=== PATIENT | female | born 1990 | race Caucasian/White ===

== ENCOUNTER 2022-01-09 20:41 | Observation (INO) ==
[2022-01-09 22:03] LABS: Basophils # (auto) 0.01 K/uL (0-0.2); Basophils % (auto) 0.2 %; Eosinophils # (auto) 0.15 K/uL (0-0.5); Eosinophils % (auto) 2.3 %; Hematocrit (blood only) 45.3 % (37-47); Hemoglobin 15.2 g/dL (12.0-16.0); Immature Granulocytes # (auto) 0.01 K/uL (0.00-0.02); Immature Granulocytes % (auto) 0.2 %; Lymphocytes # (auto) 1.24 K/uL (1.2-3.4); Lymphocytes % (auto) 18.7 %; Mean Corpuscular Hemoglobin 29.7 pg (25-34); Mean Corpuscular Hgb Conc 33.6 g/dL (32-36); Mean Corpuscular Volume 88.5 fL (80-100); Mean Platelet Volume 10.2 fL (7.4-10.4); Monocytes # (auto) 0.48 K/uL (0.11-0.59); Monocytes % (auto) 7.3 %; Neutrophils # (auto) 4.73 K/uL (1.4-6.5); Neutrophils % (auto) 71.3 %; Platelet Count 345 K/uL (130-400); RDW Coefficient of Variation 14.2 % (11.5-14.5); RDW Standard Deviation 46.9 fL (36.4-46.3); Red Blood Count 5.12 M/uL (4.2-5.4); White Blood Count 6.62 K/uL (4.8-10.8)
[2022-01-09 22:27] LABS: BUN Creatinine Ratio 12.8 (10-20); Calcium 9.4 mg/dl (8.5-10.1); Creatinine Clr Calc Pharmacy 117.5 ml/min; Est GFR (African American) 118.2 ml/min; Potassium 3.4 mmol/L (3.5-5.1)
[2022-01-09 22:38] LABS: Albumin Globulin Ratio 1.4 (0.9-2); Albumin Level 4.4 gm/dl (3.4-5.0); Bilirubin,Total 6.2 mg/dl (0.2-1.0); Globulin 3.1 gm/dl (2.5-4.0); Total Protein 7.5 gm/dl (6.0-8.3)
[2022-01-09 22:59] LABS: Appearance Urine Clear (Clear); Bacteria Urine Automated Negative (Negative); Bilirubin Urine 3+ (Negative); Blood Urine Trace (Negative); Color Urine Dark Yellow; Glucose Urine UA Negative (Negative); Ketones Urine Trace (Negative); Leukocyte Esterase Urine 1+ (Negative); Nitrite Urine Positive (Negative); Protein Urine Negative (Negative); Specific Gravity Urine 1.016 (1.000-1.030); Urobilinogen Urine Negative (Negative)
--- NOTE | 2022-01-09 23:24 | History & Physical Report ---
Date of Service January 09, 2022 Assessment & Plan (1) Elevated LFTs: Plan: Due to the patient's clinical presentation and laboratory findings she will be admitted to the hospital. We will proceed as follows: I am concerned that the patient may either have choledocholithiasis -Due to the CT scan findings we will order an MRCP. We will follow serial labs We will implement n.p.o. status We will commence antibiotics in the form of Zosyn Analgesics will be provided Antiemetics will be provided We will hydrate with IV fluids supplementing her potassium I suspect the patient may require GI evaluation and potential ERCP. We will consult gastroenterology for further recommendations We will use SCDs for DVT prevention, no chemical means the patient may potentially require procedural intervention Should be a level 1 full code History of Present Illness Chief Complaint: Abdominal pain Primary Care Provider: Karla Cerna PA-C This is a 31-year-old female who underwent a laparoscopic cholecystectomy on 12/29/[address] Sahu. The operative note was reviewed and it was noted the patient had a significant amount of sludge in her gallbladder. Patient says she was discharged home the day of her surgery and was initially doing well without any specific complaints other than some minor surgical pain. Patient notes that about 2 days ago she developed abdominal pain in her upper abdomen that she described as a "gallbladder attack". She had some associated nausea and vomiting but did not have any fevers, shakes, or chills. Since this episode the patient also noted that her eyes have become yellow. In the ED today the patient underwent labs and diagnostic testing which independent reviewed. An EKG showed normal sinus rhythm without any changes indicative of ischemia.CBC revealed white blood cell count, hemoglobin, hematocrit, and platelet count were all normal. Chemistry profile showed sodium was 141. Her potassium was 3.4. Her BUN and creatinine were both noted to be normal. Patient's total bilirubin was elevated at 6.2. Her AST and ALT were both elevated at 494 and 997 respectively. Alkaline phosphatase was elevated at 448. The patient did undergo a CT scan of the abdomen and pelvis that showed the no fluid collection was noted in the gallbladder fossa. There is some mild intrahepatic biliary ductal dilatation noted. At the time of my interview the patient was resting comfortably in bed and she was in no distress. Allergies Allergy/AdvReac Type Severity Reaction Status Date / Time No Known Allergies Allergy Verified 04/29/22 22:53 Home Medications Medication Instructions Recorded Confirmed Type famotidine 20 mg tablet (Pepcid) 20 mg PO DAILY PRN 12/11/21 01/09/22 History cholecalciferol (vitamin D3) 50 50 mcg PO QPM 12/24/21 01/09/22 History mcg (2,000 unit) tablet (Vitamin D3) sertraline 25 mg tablet (Zoloft) 25 mg PO HS 12/24/21 01/09/22 History zinc 50 mg tablet 50 mg PO QPM 12/24/21 01/09/22 History ibuprofen 200 mg tablet 400 - 600 mg PO TID PRN 01/09/22 01/09/22 History ondansetron HCl 4 mg tablet 4 mg PO Q6 PRN 01/09/22 01/09/22 History Past Med/Surg History Medical History Anxiety GERD (gastroesophageal reflux disease) Nausea and vomiting after administration of anesthetic agent Temporomandibular joint disorder Clicking, recommended to use bite block--pt states she does not use Surgical History H/O LEEP History of dilatation and curettage (~2019) Hx laparoscopic cholecystectomy (12/29/21) Laparoscopic cholecystectomy. Dr. Sahu 12/29/2021 [place] teeth extracted Family History Other No family history of adverse response to anesthesia Social History Smoking Status: Never smoker Second Hand Exposure: No; Hx Alcohol Use: Yes Alcohol type: wine Hx Substance Use: No Preferred Language: Spanish Communication Ability: Effective Tobacco Roller Required: No Beliefs That Will Affect Care: None marital status: Current Living Situation: Family Current Living Situation Comment: Lives with and kids current occupational status: employed current occupation: [employer] How many Children do You have: 2 Feels Safe at Home: Yes Safety Concerns: Feels Safe At This Time during the past year weight has: decreased > 10 lbs Assistive Devices: None Review of Systems Constitutional: no fever and no chills Eyes: as per Subjective / HPI Ear, Nose, Mouth, Throat: no ear pain Respiratory: no cough and no dyspnea Cardiovascular: no chest pain Gastrointestinal: + abdominal pain, + nausea and + vomiting Genitourinary: no dysuria Musculoskeletal: no back pain Integumentary: no rash Neurologic: no localized weakness Physical Exam Constitutional: WD/WN, vitals as above Eyes: Scleral jaundice noted ENMT: Ears: no hearing impairment Sublingual jaundice noted Neck: trachea midline Respiratory: normal respiratory effort, lungs clear to auscultation Cardiovascular: Rate/Rhythm: regular rate and regular rhythm Gastrointestinal (Abdomen): Patient has 4 laparoscopic incisions from her previous cholecystectomy that are healing well. There is no evidence of hernia. Patient's abdomen is soft without distention. Patient did have some minor pain with palpation in the right upper quadrant. No rebound tenderness or guarding was noted Musculoskeletal: No calf tenderness Skin: no rashes Neurologic: moves all extremities Psychiatric: A+Ox3, euthymic affect Results & Data Results & Data ([facility]) Vital Signs (Past 12 Hours) Vital Signs Temp Pulse Resp BP Pulse Ox 01/09/22 22:08 18 99 01/09/22 20:50 36.7 C 74 16 130/87 96 Supervising Physician Co-Signing Physician Notes I personally saw and evaluated the patient with Jean North PA-C and agree with the assessment and plan. 31-year-old female status post laparoscopic cholecystectomy 11 days ago now with elevated LFTs and abdominal pain Will admit the patient, keep her n.p.o. and obtain CT abdomen pelvis to look for biloma Start antibiotics Were unable to get a HIDA scan over the weekend We will consult GI for consideration of possible ERCP PG Care Time/CCT Total # of Minutes Spent Total Time Spent with Patient: Total time spent is greater than 50% in coordination of care (as documented) at patient's floor/unit and/or counseling patient: Coding Level of Care Code 60174 Initial Inpt Care Lvl 3 Diagnoses Elevated LFTs R79.89
[2022-01-09] MEDS ORDERED: ONDANSETRON INJ 2 MG/ML 2 ML VIAL IV STA (23:25)
[2022-01-09] MEDS ORDERED: OPTIRAY 320 100ml IV ONE (23:35)
[2022-01-09] MEDS: fentaNYL citrate 100 MCG/2 ML VIAL IV PRN (23:47)
[2022-01-10] MEDS ORDERED: PIPERACILL/TAZOBAC CONSULT ACTIVE PRN (00:25)
[2022-01-10] MEDS ORDERED: POTASSIUM CHLORIDE 10 MEQ in LACTATED RINGER'S 1,000 ML IV SCH (00:30)
--- NOTE | 2022-01-10 00:32 | CT Scan Report ---
CT SCAN OF THE ABDOMEN AND PELVIS WITH IV CONTRAST CLINICAL HISTORY: Hyperbilirubinemia status post cholecystectomy. Generalized abdominal pain. COMPARISON STUDY: No priors. TECHNIQUE: Following the IV administration of 95 cc of Optiray 320, CT scan of the abdomen and pelvi s is performed from the lung bases to the proximal femora. Images are reviewed in the axial, sagittal , and coronal planes. IV contrast was administered without complication. A dose lowering technique wa s utilized adhering to the principles of ALARA. CT DOSE: 535.53 mGy.cm FINDINGS: Lung bases: The heart is normal in size and without pericardial effusion. The lung bases are clear. Liver: The contrast-enhanced liver is normal in size, contour, and attenuation. There is mild intrahe patic biliary ductal dilatation. The hepatic veins and portal veins are patent. Gallbladder: Surgically absent noting clips in the gallbladder fossa. There is minimal stranding in t he gallbladder fossa. No fluid collection is identified. Spleen: Normal in size and attenuation. Pancreas: Unremarkable. Adrenal glands: Unremarkable. Kidneys: The contrast enhanced kidneys are normal in size and without hydronephrosis. The kidneys enh ance symmetrically. A circumaortic left renal vein is incidentally noted. Abdominal vasculature: The abdominal aorta is normal in course and caliber. Bowel: The small bowel and colon are normal in course and caliber. The appendix is well-visualized a nd normal. Peritoneum: There is no intraperitoneal free air or abdominal ascites. There is a fat-containing umbi lical hernia. Lymphadenopathy: None. Pelvic viscera: The bladder, uterus, and adnexa are normal as visualized. Bilateral ovarian follicles are incidentally noted. Skeletal structures: No lytic or blastic lesions are seen. IMPRESSION: 1. The gallbladder is surgically absent. 2. There is minimal stranding in the gallbladder fossa. No fluid collection is seen. 3. There is mild nonspecific intrahepatic biliary ductal dilatation. If there is clinical concern for a retained gallstone/choledocholithiasis an MRCP could be considered. 4. Additional findings as above. ACT 112: Negative or not required by law. Electronically signed by: Ramses Narayan M.D. 01/10/2022 12:30 AM
[2022-01-10] MEDS: fentaNYL citrate 100 MCG/2 ML VIAL IV PRN (01:17)
[2022-01-10] MEDS: PIPERACILLIN/TAZOBACTAM 3.375 GM in DEXTROSE 5% 100 ML IV SCH ×3 (02:08→16:25)
[2022-01-10] MEDS: ONDANSETRON INJ 2 MG/ML 2 ML VIAL IV PRN ×3 (04:21→22:36)
--- NOTE | 2022-01-10 05:21 | Surgery Progress Note ---
Date of Service January 10, 2022 Assessment & Plan (1) Elevated LFTs: Plan: Patient is status post laparoscopic cholecystectomy on 12/29/[address] Sahu. Patient was readmitted due to elevated LFTs/jaundice. We will continue to proceed as follows: As needed analgesics As needed antiemetics IV fluid for hydration Continue n.p.o. status for the present time Continue antibiotics in form of Zosyn Due to concern for potential choledocholithiasis, an MRCP was performed which did not show any evidence of choledocholithiasis. There is also no evidence of fluid collection or abscess in the gallbladder fossa We will plan on repeating labs this morning trending her LFTs GI has been consulted and we will await recommendations SCDs only for DVT prevention for the present time until we are certain if patient will require any procedural intervention Admission and Anticipated Discharge Date Admission Date: January 10, 2022 Supervising Physician Co-Signing Physician Notes I personally saw and evaluated the patient with Jean North PA-C and agree with the assessment and plan. 31-year-old female status post laparoscopic cholecystectomy 12 days ago now with elevated LFTs and abdominal pain CT images and MRCP images and results reviewed No evidence for biloma or retained stone She has no biliary dilation to suggest obstruction Will await GI input today, she may have an intrinsic liver issue causing her elevated LFTs Keep n.p.o. for now and continue IV antibiotics Subjective Patient is resting comfortably in bed. She notes she really has not had much in the way of worsening abdominal pain since admission. She denies any nausea or vomiting. She has not had a bowel movement since admission. Physical Exam Gastrointestinal (Abdomen): Abdomen is soft and nondistended. She has appropriate tenderness near surgical incisions. Results & Data ([facility]) Vital Signs (Past 12 Hours) Vital Signs Temp Pulse Pulse Resp BP BP Pulse Ox 01/10/22 03:50 36.9 C 61 18 140/84 98 01/09/22 22:08 18 99 01/09/22 20:50 36.7 C 74 16 130/87 96 PG Care Time/CCT Total # of Minutes Spent Total Time Spent with Patient: Total time spent is greater than 50% in coordination of care (as documented) at patient's floor/unit and/or counseling patient: Coding Level of Care Code None Diagnoses Elevated LFTs R79.89
[2022-01-10 07:14] LABS: Basophils # (auto) 0.01 K/uL (0-0.2); Basophils % (auto) 0.1 %; Eosinophils # (auto) 0.14 K/uL (0-0.5); Eosinophils % (auto) 1.9 %; Hematocrit (blood only) 40.6 % (37-47); Hemoglobin 13.5 g/dL (12.0-16.0); Immature Granulocytes # (auto) 0.02 K/uL (0.00-0.02); Immature Granulocytes % (auto) 0.3 %; Lymphocytes # (auto) 1.52 K/uL (1.2-3.4); Lymphocytes % (auto) 20.9 %; Mean Corpuscular Hemoglobin 28.9 pg (25-34); Mean Corpuscular Hgb Conc 33.3 g/dL (32-36); Mean Corpuscular Volume 86.9 fL (80-100); Mean Platelet Volume 9.9 fL (7.4-10.4); Monocytes % (auto) 9.6 %; Neutrophils % (auto) 67.2 %; Platelet Count 281 K/uL (130-400); RDW Coefficient of Variation 14.6 % (11.5-14.5); RDW Standard Deviation 46.2 fL (36.4-46.3); Red Blood Count 4.67 M/uL (4.2-5.4); White Blood Count 7.29 K/uL (4.8-10.8)
[2022-01-10 07:42] LABS: BUN Creatinine Ratio 13.2 (10-20); Calcium 8.9 mg/dl (8.5-10.1); Creatinine Clr Calc Pharmacy 133.2 ml/min; Est GFR (Non-African American) 117.4 ml/min
[2022-01-10 07:49] LABS: Albumin Globulin Ratio 1.6 (0.9-2); Albumin Level 3.9 gm/dl (3.4-5.0); Bilirubin,Total 5.5 mg/dl (0.2-1.0); Globulin 2.4 gm/dl (2.5-4.0); Total Protein 6.3 gm/dl (6.0-8.3)
--- NOTE | 2022-01-10 09:03 | Magnetic Resonance Report ---
MR MRCP HISTORY: 31 years-old Female ?choledocholithiasis elevated bilirubin status post cholecystectomy. COMPARISON: CT abdomen and pelvis 01/09/2022 TECHNIQUE: MRCP without the use of IV contrast was obtained utilizing institutional protocol FINDINGS: Motion degraded exam. The imaged lower chest appears unremarkable. Cholecystectomy. Trace fluid is no jesus within the olivia hepatis. No drainable fluid collection identified. No intrahepatic or extrahepat ic biliary ductal dilation. The common bile duct is normal in caliber measuring 3 mm transversely. No filling defects are identified to suggest choledocholithiasis. No biliary strictures. No pancreatic ductal dilation or pancreatic divisum identified. The solid abdominal organs are unremarkable. No bowel obstruction. Tiny hiatal hernia suspected. IMPRESSION: 1. Status post cholecystectomy with edema and likely expected postoperative trace fluid within the po rta hepatus. 2. No biliary ductal dilation or choledocholithiasis. ACT 112: Negative or not required by law. The above report was generated using voice recognition software. It may contain grammatical, syntax o r spelling errors. Electronically signed by: Jamari Shirley M.D. 01/10/2022 9:01 AM
[2022-01-10] MEDS: LACTATED RINGER'S 1,000 ML IV SCH ×3 (09:33→22:29)
[2022-01-10] MEDS: MoRPHine SULFATE 4 MG/ML 1 ML CARP\\VIAL IV PRN ×3 (11:17→22:34)
[2022-01-10] MEDS ORDERED: SUCCINYLCHOLINE CHLORIDE 20 MG/ML 10 ML VIAL IV ONE (14:12)
[2022-01-10] MEDS ORDERED: fentaNYL citrate 100 MCG/2 ML VIAL ONE (14:12)
[2022-01-10] MEDS ORDERED: MIDAZOLAM HCL 1 MG/ML 2ML VIAL ONE (14:12)
[2022-01-10] MEDS ORDERED: PROPOFOL IV EMULSION 10 MG/ML 20 ML VIAL IV ONE (14:12)
[2022-01-10] MEDS ORDERED: HYDROmorphone INJ 2 MG/ML SYR/VIAL IV PRN (14:43)
[2022-01-10] MEDS ORDERED: DROPERIDOL 5 MG/2 ML VIAL IV PRN (14:43)
[2022-01-10] MEDS ORDERED: ePHEDrine sulfate 50 MG/ML AMP IV PRN (14:43)
[2022-01-10] MEDS ORDERED: ATROPINE SULFATE 0.1 MG/ML 10ML SYR IV PRN (14:43)
[2022-01-10] MEDS ORDERED: fentaNYL citrate 100 MCG/2 ML VIAL IV PRN (14:43)
--- NOTE | 2022-01-10 14:43 | Anesthesiology Consultation ---
Date of Service January 10, 2022 Assessment & Plan ASA ASA2 Proposed Anesthesia Anesthesia Type: General Risk / Benefits Reviewed With: PT / POA / Parent / Guardian, Accepts Plan and Informed Consent Obtained Additional Comments: poc test negative History Surgery Operation Date: 01/10/22 15:00 Proposed Procedures p Endoscopic Retrograde Cholangiopancreato Steve Katz DO Height/Weight Height: 5 ft 8 in Weight: 78.5 kg Allergies Allergy/AdvReac Type Severity Reaction Status Date / Time No Known Allergies Allergy Verified 01/09/22 22:53 Medications Home Medications Medication Instructions Recorded Confirmed Last Taken famotidine 20 mg tablet (Pepcid) 20 mg PO DAILY PRN 12/11/21 01/09/22 Unknown cholecalciferol (vitamin D3) 50 50 mcg PO QPM 12/24/21 01/09/22 12/28/21 22:30 mcg (2,000 unit) tablet (Vitamin D3) sertraline 25 mg tablet (Zoloft) 25 mg PO HS 12/24/21 01/09/22 12/28/21 22:30 zinc 50 mg tablet 50 mg PO QPM 12/24/21 01/09/22 12/28/21 22:30 ibuprofen 200 mg tablet 400 - 600 mg PO TID PRN 01/09/22 01/09/22 Unknown ondansetron HCl 4 mg tablet 4 mg PO Q6 PRN 01/09/22 01/09/22 Unknown Active Medications Generic Name Dose Route Start Last Admin Trade Name Freq PRN Reason Stop Dose Admin Piperacillin Sod/Tazobactam 115 mls @ 28.75 mls/hr 01/10/22 00:30 01/10/22 13:10 Sod 3.375 gm/ Dextrose IV 01/20/22 00:29 Infused Q8H RANDEE Infusion Protocol Lactated Ringer's 1,000 mls @ 150 mls/hr 01/10/22 09:00 01/10/22 09:33 Lr IV 02/09/22 08:59 150 mls/hr .[id number] RANDEE Administration Morphine Sulfate 3 mg 01/10/22 00:24 01/10/22 11:17 Morphine Sulfate 4 Mg/Ml 1 Ml Carp\Vial IV 01/24/22 00:23 3 mg Q3H PRN Administration Pain Ondansetron HCl 4 mg 01/10/22 00:25 01/10/22 14:01 Ondansetron Inj 2 Mg/Ml 2 Ml Vial IV 02/09/22 00:24 4 mg Q6H PRN Administration Nausea And Vomiting NPO Date Last Intake of Fluids: 01/09/22 Time Last Intake of Fluids: 15:00 Date Last Intake of Solids: 01/09/22 Time Last Intake of Solids: 15:00 Past Medical History Medical History Anxiety GERD (gastroesophageal reflux disease) Nausea and vomiting after administration of anesthetic agent Temporomandibular joint disorder Clicking, recommended to use bite block--pt states she does not use Exercise / Class Metabolic Activity II 4-5 Yardwork/Stairs/Walk up hill Past Family History Family History Other No family history of adverse response to anesthesia Past Surgical History Surgical History H/O LEEP History of dilatation and curettage (~2019) Hx laparoscopic cholecystectomy (12/29/21) Laparoscopic cholecystectomy. Dr. Sahu 12/29/2021 [place] teeth extracted Past Anesthesia History No Hx of Anesthesia Complications and No Family Hx of Anesthesia Complications History of PONV No Hx of PONV and No Hx of Motion Sickness Social History Smoking Status: Never smoker Hx Alcohol Use: Yes Alcohol type: wine alcohol intake frequency: holidays/special occasions only Hx Substance Use: No substance use type: does not use Review of Systems denies fever/cough/ colds/ chest pain/ SOB/ SUZANNE denies SUZANNE Physical Exam Vital Signs Last Vital Signs Temp 36.8 C 01/10/22 07:30 Pulse 54 L 01/10/22 07:30 Resp 18 01/10/22 07:30 BP 112/75 01/10/22 07:30 Pulse Ox 98 01/10/22 07:30 ENMT Mouth: no TMJ abnormality and no dentition abnormality Thyromental Distance: > or= 3.5 Finger Breadths Mallampati Class: II Neck neck extension not limited Respiratory normal respiratory effort; no respiratory distress Auscultation: lungs clear to auscultation bilaterally Cardiovascular Rate/Rhythm: regular rate and regular rhythm Neurologic moves all extremities Psychiatric Orientation: alert and oriented x 3 Testing Laboratory Results 01/10/22 07:01 01/10/22 07:01 Urine Color Dark Yellow 01/09/22 21:30 Urine Appearance Clear (Clear) 01/09/22 21: Urine pH 5.0 (4.5-7.5) 01/09/22 21:30 Ur Specific Dawson 1.016 (1.000-1.030) 01/09/22 21:30 Urine Protein Negative (Negative) 01/09/22 21: Urine Glucose (UA) Negative (Negative) 01/09/22 21: Urine Ketones Trace (Negative) H 01/09/22 21: Urine Nitrite Positive (Negative) A 01/09/22 21:30 Ur Leukocyte Esterase 1+ (Negative) H 01/09/22 21: Urine WBC (Auto) 1-5 /hpf (0-5) 01/09/22 21:30 Urine RBC (Auto) 5-10 /hpf (0-4) H 01/09/22 21: U Hyaline Cast (Auto) 1-5 /lpf (0-5) 01/09/22 21:30 U Epithel Cells (Auto) 5-10 /lpf (0-5) H 01/09/22 21:30 Urine Bacteria (Auto) Negative (Negative) 01/09/22 21:30 01/09/22 21: POC Ur Test Pending
--- NOTE | 2022-01-10 14:52 | History & Physical Bridge Note ---
Date of Service January 10, 2022 History & Physical Bridge Note I have examined the patient, reviewed the History & Physical and in the interval since the performance of the History & Physical I have noted the following changes of clinical significance: no changes noted. The patient presents with jaundice elevated liver enzymes postcholecystectomy. Given the bilirubin of over 3.5 we will proceed directly to ERCP as she has a very high pretest probability for choledocholithiasis. We discussed the risks and benefits of ERCP to include bleeding infection perforation pain, pancreatitis failed biliary cannulation and need for follow-up studies.
--- NOTE | 2022-01-10 14:56 | Gastrointestinal Consultation ---
Date of Consultation January 10, 2022 Assessment & Plan (1) Elevated LFTs: Patient recently status postcholecystectomy presented with recurrent abdominal discomfort and a significant elevation of her liver associated enzymes and bilirubin. Given the bilirubin is much greater than 3.5 she is a very high pretest probability for retained common bile duct stones postcholecystectomy. Given this we will proceed directly to ERCP this afternoon. I have discussed the risks and benefits of ERCP with the patient to include bleeding, infection, perforation, pain, pancreatitis, failed biliary cannulation and need for follow- up studies. (2) Cholelithiasis: History of Present Illness Reason for Consultation: Jaundice Attending Physician: Frank Steven DO History of Present Illness The patient is a 31-year-old female who is recently status postcholecystectomy due to cholelithiasis and biliary sludge. The patient notes that she was feeling well until about 3 days ago when she began to develop intermittent right-sided abdominal discomfort. She then noticed that she became jaundiced yesterday. Patient describes having right-sided abdominal discomfort which is very reminiscent of her precholecystectomy discomfort. Allergies Allergy/AdvReac Type Severity Reaction Status Date / Time No Known Allergies Allergy Verified 01/09/22 22:53 Home Medications Medication Instructions Recorded Confirmed Type famotidine 20 mg tablet (Pepcid) 20 mg PO DAILY PRN 12/11/21 01/09/22 History cholecalciferol (vitamin D3) 50 50 mcg PO QPM 12/24/21 01/09/22 History mcg (2,000 unit) tablet (Vitamin D3) sertraline 25 mg tablet (Zoloft) 25 mg PO HS 12/24/21 01/09/22 History zinc 50 mg tablet 50 mg PO QPM 12/24/21 01/09/22 History ibuprofen 200 mg tablet 400 - 600 mg PO TID PRN 01/09/22 01/09/22 History ondansetron HCl 4 mg tablet 4 mg PO Q6 PRN 01/09/22 01/09/22 History Patient History Medical History Anxiety GERD (gastroesophageal reflux disease) Nausea and vomiting after administration of anesthetic agent Temporomandibular joint disorder Clicking, recommended to use bite block--pt states she does not use Surgical History H/O LEEP History of dilatation and curettage (~2019) Hx laparoscopic cholecystectomy (12/29/21) Laparoscopic cholecystectomy. Dr. Sahu 12/29/2021 [place] teeth extracted Family History Other No family history of adverse response to anesthesia Social History Smoking Status: Never smoker Second Hand Exposure: No; Hx Alcohol Use: Yes Alcohol type: wine Hx Substance Use: No Preferred Language: [place] Communication Ability: Effective Diploma Maker Required: No Beliefs That Will Affect Care: None marital status: Current Living Situation: Family Current Living Situation Comment: Lives with and kids current occupational status: employed current occupation: [employer] How many Children do You have: 2 Feels Safe at Home: Yes Safety Concerns: Feels Safe At This Time during the past year weight has: decreased > 10 lbs Assistive Devices: None Review of Systems Constitutional: + fever and + malaise; no chills and no sweats Eyes: no diplopia Ear, Nose, Mouth, Throat: no dizziness and no nasal discharge Respiratory: no change in sputum and no hemoptysis Cardiovascular: no chest pain and no chest pain with activity Gastrointestinal: + abdominal pain and + nausea; no bloating, no early satiety and no vomiting Genitourinary: no dysuria and no urinary frequency Musculoskeletal: no radicular pain Integumentary: no rash Neurologic: no falls and no paralysis Psychiatric: no hopelessness Endocrine: no polydipsia Hematologic / Lymphatic: no easy bleeding and no coagulopathy Allergy / Immunological: no lip swelling, no tongue swelling and no cough Physical Exam Constitutional: WD/WN, vitals as above Eyes: Scleral icterus noted ENMT: Mallampati Class: II Neck: trachea midline, no thyromegaly Respiratory: normal respiratory effort, lungs clear to auscultation Cardiovascular: Rate/Rhythm: regular rate and regular rhythm; not tachycardic Heart Sounds: no murmur Gastrointestinal (Abdomen): Percussion/Palpation: + abdomen tender and abdomen soft; no guarding Skin: Jaundice noted Neurologic: PERRL, EOMI, accommodation nl, no face palsy, no dysarthria Psychiatric: A+Ox3, euthymic affect Results & Data ([facility]) Vital Signs (Past 12 Hours) Vital Signs Temp Pulse Pulse Resp BP Pulse Ox 01/10/22 07:30 36.8 C 54 L 18 112/75 98 01/10/22 03:50 36.9 C 61 18 140/84 98 Laboratory Results Laboratory Results - last 24 hr 01/09/22 01/09/22 01/09/22 21:20 21:20 21:30 WBC 6.62 RBC 5.12 Hgb 15.2 Hct 45.3 MCV 88.5 MCH 29.7 MCHC 33.6 RDW Std Deviation 46.9 H RDW Coeff of Connor 14.2 Plt Count 345 MPV 10.2 Immature Gran % (Auto) 0.2 Neut % (Auto) 71.3 Lymph % (Auto) 18.7 Powell % (Auto) 7.3 Eos % (Auto) 2.3 Baso % (Auto) 0.2 Neut # (Auto) 4.73 Lymph # (Auto) 1.24 Powell # (Auto) 0.48 Eos # (Auto) 0.15 Baso # (Auto) 0.01 Immature Gran # (Auto) 0.01 Sodium 141 Potassium 3.4 L Chloride 107 Carbon Dioxide 24 Anion Gap 10 BUN 10 Creatinine 0.78 Est Cr Clr Drug Dosing 117.5 Est GFR ( Amer) 118.2 Est GFR (Non-Af Amer) 102.0 BUN/Creatinine Ratio 12.8 Glucose 120 H Calcium 9.4 Total Bilirubin 6.2 H AST 494 H ALT 997 H Alkaline Phosphatase 448 H Total Protein 7.5 Albumin 4.4 Globulin 3.1 Albumin/Globulin Ratio 1.4 Lipase Urine Color Dark Yellow Urine Appearance Clear Urine pH 5.0 Ur Specific Blanch 1.016 Urine Protein Negative Urine Glucose (UA) Negative Urine Ketones Trace H Urine Blood Trace H Urine Nitrite Positive A Urine Bilirubin 3+ H Urine Urobilinogen Negative Ur Leukocyte Esterase 1+ H Urine WBC (Auto) 1-5 Urine RBC (Auto) 5-10 H U Hyaline Cast (Auto) 1-5 U Epithel Cells (Auto) 5-10 H Urine Bacteria (Auto) Negative Urine Yeast Not Reportable POC Ur Test SARS-CoV-2, RNA, NAAT 01/09/22 01/09/22 01/10/22 21:30 23:40 07:01 WBC 7.29 RBC 4.67 Hgb 13.5 Hct 40.6 MCV 86.9 MCH 28.9 MCHC 33.3 RDW Std Deviation 46.2 RDW Coeff of Connor 14.6 H Plt Count 281 MPV 9.9 Immature Gran % (Auto) 0.3 Neut % (Auto) 67.2 Lymph % (Auto) 20.9 Powell % (Auto) 9.6 Eos % (Auto) 1.9 Baso % (Auto) 0.1 Neut # (Auto) 4.90 Lymph # (Auto) 1.52 Powell # (Auto) 0.70 H Eos # (Auto) 0.14 Baso # (Auto) 0.01 Immature Gran # (Auto) 0.02 Sodium Potassium Chloride Carbon Dioxide Anion Gap BUN Creatinine Est Cr Clr Drug Dosing Est GFR ( Amer) Est GFR (Non-Af Amer) BUN/Creatinine Ratio Glucose Calcium Total Bilirubin AST ALT Alkaline Phosphatase Total Protein Albumin Globulin Albumin/Globulin Ratio Lipase Urine Color Urine Appearance Urine pH Ur Specific Blanch Urine Protein Urine Glucose (UA) Urine Ketones Urine Blood Urine Nitrite Urine Bilirubin Urine Urobilinogen Ur Leukocyte Esterase Urine WBC (Auto) Urine RBC (Auto) U Hyaline Cast (Auto) U Epithel Cells (Auto) Urine Bacteria (Auto) Urine Yeast POC Ur Test Pending SARS-CoV-2, RNA, NAAT NEGATIVE 01/10/22 07:01 WBC RBC Hgb Hct MCV MCH MCHC RDW Std Deviation RDW Coeff of Connor Plt Count MPV Immature Gran % (Auto) Neut % (Auto) Lymph % (Auto) Powell % (Auto) Eos % (Auto) Baso % (Auto) Neut # (Auto) Lymph # (Auto) Powell # (Auto) Eos # (Auto) Baso # (Auto) Immature Gran # (Auto) Sodium 141 Potassium 4.0 Chloride 111 H Carbon Dioxide 21 Anion Gap 9 BUN 9 Creatinine 0.68 Est Cr Clr Drug Dosing 133.2 Est GFR ( Amer) 136.0 Est GFR (Non-Af Amer) 117.4 BUN/Creatinine Ratio 13.2 Glucose 100 H Calcium 8.9 Total Bilirubin 5.5 H AST 341 H ALT 782 H Alkaline Phosphatase 394 H Total Protein 6.3 Albumin 3.9 Globulin 2.4 L Albumin/Globulin Ratio 1.6 Lipase 1458 H Urine Color Urine Appearance Urine pH Ur Specific Blanch Urine Protein Urine Glucose (UA) Urine Ketones Urine Blood Urine Nitrite Urine Bilirubin Urine Urobilinogen Ur Leukocyte Esterase Urine WBC (Auto) Urine RBC (Auto) U Hyaline Cast (Auto) U Epithel Cells (Auto) Urine Bacteria (Auto) Urine Yeast POC Ur Test SARS-CoV-2, RNA, NAAT
[2022-01-10] MEDS ORDERED: INDOMETHACIN 50 MG SUPP PR ONE ×2 (14:57→14:59)
--- NOTE | 2022-01-10 15:32 | GI REPORT ---
Patient Name: Theresa Bass Procedure Date: 01/10/2022 3:02 PM Date of : 1990 Admit Type: Inpatient Age: 31 Gender: Female Attending MD: Shelia Katz DO Procedure: ERCP Providers: Shelia Katz DO Referring MD: Frank Steven Do, Federico Sahu Indications: Abdominal pain of suspected biliary origin, Jaundice, Elevated liver enzymes Medicines: General Anesthesia Complications: No immediate complications. Estimated blood loss: Minimal. Estimated Blood Loss: Estimated blood loss was minimal. Procedure: Pre-Anesthesia Assessment: - Prior to the procedure, a History and Physical was performed, and patient medications, allergies and sensitivities were reviewed. The patient's tolerance of previous anesthesia was reviewed. - The risks and benefits of the procedure and the sedation options and risks were discussed with the patient. All questions were answered and informed consent was obtained. - Patient identification and proposed procedure were verified prior to the procedure by the physician, the nurse and the parimutuel ticket checker. The procedure was verified in the procedure room. - Pre-procedure physical examination revealed no contraindications to sedation. - ASA Grade Assessment: II - A patient with mild systemic disease. - After reviewing the risks and benefits, the patient was deemed in satisfactory condition to undergo the procedure. - The anesthesia plan was to use general anesthesia. - Immediately prior to administration of medications, the patient was re-assessed for adequacy to receive sedatives. - The heart rate, respiratory rate, oxygen saturations, blood pressure, adequacy of pulmonary ventilation, and response to care were monitored throughout the procedure. - The physical status of the patient was re-assessed after the procedure. After obtaining informed consent, the scope was passed under direct vision. Throughout the procedure, the patient's blood pressure, pulse, and oxygen saturations were monitored continuously. The Duodenoscope was introduced through the mouth, and advanced to the duodenum and used to inject contrast into the bile duct. The ERCP was accomplished without difficulty. The patient tolerated the procedure well. Findings: A marketing community liaison film of the abdomen was obtained. Surgical clips, consistent with a previous cholecystectomy, were seen in the area of the right upper quadrant of the abdomen. The esophagus was successfully intubated under direct vision without detailed examination of the pharynx, larynx, and associated structures, and upper GI tract. The upper GI tract was grossly normal. The major papilla was congested. The bile duct was deeply cannulated with the short-nosed traction sphincterotome and 0.035 in Acrobat 2 guidewire (PD not injected or cannulated today). Contrast was injected. I personally interpreted the bile duct images. Contrast extended to the hepatic ducts. A cholecystectomy had been performed. The biliary orifice was stenotic. This appeared benign. The lower third of the main bile duct contained filling defect(s) thought to be a stone and sludge. Biliary sphincterotomy was made with a monofilament Fusion OMNI sphincterotome using ERBE electrocautery. There was no post-sphincterotomy bleeding. To discover objects, the biliary tree was swept with a 12 mm balloon starting at the bifurcation. Sludge was swept from the duct. A few small pale pigmented stones were removed. No obvious stones remained. One 10 Fr by 7 cm biliary stent with a single external flap and a single internal flap was placed 7 cm into the common bile duct. Bile flowed through the stent. The stent was in good position. The endoscope was withdrawn from the patient. Indomethacin 100 mg was given via suppository to decrease the risk of post-ERCP pancreatitis (PEP). Impression: - The major papilla appeared congested. - Biliary papillary stenosis, benign. - A filling defect consistent with a stone and sludge was seen on the cholangiogram. - The patient has had a cholecystectomy. - Choledocholithiasis was found. Complete removal was accomplished by biliary sphincterotomy and balloon extraction. - A biliary sphincterotomy was performed. - One biliary stent was placed into the common bile duct. - Indomethacin given to decrease risk of post-ERCP pancreatitis. Recommendation: - Avoid aspirin and nonsteroidal anti-inflammatory medicines for 1 week. - Clear liquid diet today. - Observe patient's clinical course following today's ERCP with therapeutic intervention. - Repeat ERCP in 6 weeks to remove stent. - Use broad spectrum antibiotics for 10 days. Shelia Ktaz D.O. Shelia Katz DO 01/10/2022 3:32:25 PM This report has been signed electronically. Note Initiated On: 01/10/2022 3:02 PM Number of Addenda: 0 I attest to the content of the Intraoperative Record and orders documented therein, exceptions below {[id number]}
--- NOTE | 2022-01-10 15:33 | Post Operative Brief Note ---
Immediate Post Op Note v1 Date of Surgery January 10, 2022 Pre & Post Diagnosis Operation Date: 01/10/22 15:00 Pre-Op Diagnosis: Status Post Cholecystectomy with Elevated Liver Functioning Tests Post-Op Diagnosis: bilary sludge / stones I identified the patient and participated in the time-out.: Yes Procedure Operation Date: 01/10/22 15:00 Actual Procedures p Endoscopic Retrograde Cholangiopancreatography in Operating Room(Not Applicable) - Shelia Katz DO Surgeon Shelia Katz DO Swiss Machinist none Estimated Blood Loss 1 Findings Consistent with Post-Op Diagnosis
--- NOTE | 2022-01-10 15:35 | Communication Note ---
Date of Service: January 10, 2022 The patient underwent ERCP this afternoon for suspected choledocholithiasis in the setting of elevated liver enzymes and bilirubin. We found evidence of papillary stenosis, sludge within the common bile duct and several small pale pigmented stones the stones were removed after a biliary sphincterotomy. A biliary stent was placed due to the finding of papillary stenosis Recommendations She may have a clear liquid diet today Continue IV hydration 10-day course of broad-spectrum antibiotics Repeat ERCP in 6 to 8 weeks for biliary stent removal Avoid nonsteroidals for 5 days Please call with any questions or concerns
--- NOTE | 2022-01-10 15:57 | Anesthesiology Progress Note ---
Date of Service January 10, 2022 Anesthesia Post Procedure Vital Signs Vital Signs: Temp Pulse Pulse Pulse Pulse Resp BP 01/10/22 15:55 36.3 C L 59 L 18 01/10/22 15:45 71 24 01/10/22 15:35 69 19 01/10/22 15:27 36.2 C L 87 16 01/10/22 07:30 36.8 C 54 L 18 01/10/22 03:50 36.9 C 61 18 01/09/22 22:08 18 01/09/22 20:50 36.7 C 74 16 130/87 BP BP Pulse Ox 01/10/22 15:55 122/81 98 01/10/22 15:45 140/87 98 01/10/22 15:35 126/84 99 01/10/22 15:27 129/92 100 01/10/22 07:30 112/75 98 01/10/22 03:50 140/84 98 01/09/22 22:08 99 01/09/22 20:50 96 Transfer of Care Handoff Completed per policy Notes Mental Status: alert / awake / arousable and participated in evaluation Patient Amnestic to Procedure: Yes Nausea / Vomiting: adequately controlled Pain: adequately controlled Airway Patency, RR, SpO2: stable & adequate BP & HR: stable & adequate Hydration State: stable & adequate Anesthetic Complications: no major complications apparent and Pt Satisfied with anesthetic care
--- NOTE | 2022-01-10 16:37 | Fluoroscopy Report ---
[place] ERCP biliary ductal HISTORY: 31 years-old Female ERCP acute right upper quadrant abdominal pain COMPARISON: MRCP 01/10/2022, CT abdomen and pelvis 01/09/2022 TECHNIQUE: 7 spot fluoroscopic images of the right upper quadrant abdomen were obtained utilizing 50. 7 seconds fluoroscopy time FINDINGS: Endoscope is noted within the duodenum. There is cannulation of the common bile duct with retrograde injection of contrast. No biliary ductal dilation or biliary filling defects are identified. Subseque nt images demonstrate balloon sweep of the common bile duct with placement of a stent which appears t o be in satisfactory positioning. Cholecystectomy clips are noted. IMPRESSION: Fluoroscopic assistance as above. ACT 112: Negative or not required by law. The above report was generated using voice recognition software. It may contain grammatical, syntax o r spelling errors. Electronically signed by: Jamari Shirley M.D. 01/10/2022 4:35 PM
[2022-01-10] MEDS ORDERED: SERTRALINE HCL 50 MG TABLET PO SCH (21:00)
[2022-01-11] MEDS: PIPERACILLIN/TAZOBACTAM 3.375 GM in DEXTROSE 5% 100 ML IV SCH ×2 (00:20→09:38)
[2022-01-11] MEDS: LACTATED RINGER'S 1,000 ML IV SCH ×2 (04:39→11:18)
--- NOTE | 2022-01-11 05:12 | Surgery Progress Note ---
Date of Service January 11, 2022 Assessment & Plan (1) Elevated LFTs: Plan: Patient is status post laparoscopic cholecystectomy on 12/29/[address] Sahu. Patient was readmitted due to elevated LFTs/jaundice. She is status post ERCP secondary to choledocholithiasis on 01/10/2022 Continue analgesics Continue antiemetics Continue IV fluid for hydration until we are certain oral intake is adequate Continue antibiotics in form of Zosyn Check a.m. labs when available If patient continues to do well we will consider advancing diet further this morning Admission and Anticipated Discharge Date Admission Date: January 10, 2022 Supervising Physician Co-Signing Physician Notes I personally saw and evaluated the patient with Jean North PA-C and agree with the assessment and plan. 31-year-old female status post laparoscopic cholecystectomy, ERCP yesterday with findings of choledocholithiasis ERCP images and results reviewed She is feeling much better today and is tolerated clear liquids, will advance her diet today and if she tolerates we will discharge her home She will follow-up with GI for stent removal We will give her 10 days of Augmentin and have her follow-up with Dr. Sahu as scheduled Subjective Patient is resting comfortably in bed. She notes since her ERCP yesterday she has tolerated liquids without any nausea or vomiting. She did report some minor right upper quadrant abdominal pain. She did receive some morphine which did cause some nausea. Physical Exam Gastrointestinal (Abdomen): Abdomen is soft and nondistended. There is minimal to no palpation with pain Results & Data ([facility]) Vital Signs (Past 12 Hours) Vital Signs Temp Pulse Pulse Resp BP Pulse Ox 01/11/22 03:47 36.7 C 50 L 16 108/66 96 01/10/22 23:00 52 L 01/10/22 21:59 36.6 C 49 L 16 110/69 98 01/10/22 19:28 36.5 C 51 L 16 119/78 99 01/10/22 18:00 36.3 C L 54 L 16 113/77 98 PG Care Time/CCT Total # of Minutes Spent Total Time Spent with Patient: Total time spent is greater than 50% in coordination of care (as documented) at patient's floor/unit and/or counseling patient: Coding Level of Care Code 31132 Subseq Hosp Care Lvl 1 Diagnoses Elevated LFTs R79.89
[2022-01-11 06:37] LABS: Eosinophils # (auto) 0.01 K/uL (0-0.5); Eosinophils % (auto) 0.1 %; Hematocrit (blood only) 37.3 % (37-47); Hemoglobin 12.5 g/dL (12.0-16.0); Immature Granulocytes # (auto) 0.02 K/uL (0.00-0.02); Immature Granulocytes % (auto) 0.3 %; Lymphocytes # (auto) 1.48 K/uL (1.2-3.4); Lymphocytes % (auto) 19.3 %; Mean Corpuscular Hemoglobin 28.9 pg (25-34); Mean Corpuscular Volume 86.3 fL (80-100); Mean Platelet Volume 10.2 fL (7.4-10.4); Monocytes # (auto) 0.52 K/uL (0.11-0.59); Monocytes % (auto) 6.8 %; Neutrophils # (auto) 5.64 K/uL (1.4-6.5); Neutrophils % (auto) 73.5 %; Platelet Count 254 K/uL (130-400); RDW Coefficient of Variation 14.4 % (11.5-14.5); RDW Standard Deviation 45.3 fL (36.4-46.3); Red Blood Count 4.32 M/uL (4.2-5.4); White Blood Count 7.67 K/uL (4.8-10.8)
[2022-01-11 06:41] LABS: Mean Corpuscular Hgb Conc 33.5 g/dL (32-36)
[2022-01-11 07:12] LABS: Albumin Globulin Ratio 1.5 (0.9-2); Albumin Level 3.4 gm/dl (3.4-5.0); BUN Creatinine Ratio 17.6 (10-20); Bilirubin,Total 1.7 mg/dl (0.2-1.0); Calcium 8.4 mg/dl (8.5-10.1); Creatinine Clr Calc Pharmacy 177.6 ml/min; Est GFR (African American) 149.6 ml/min; Globulin 2.3 gm/dl (2.5-4.0); Potassium 3.8 mmol/L (3.5-5.1); Total Protein 5.7 gm/dl (6.0-8.3)
--- NOTE | 2022-01-11 11:04 | Gastroenterology Progress Note ---
Date of Service January 11, 2022 Assessment & Plan (1) Hx laparoscopic cholecystectomy: (2) Elevated LFTs: (3) Choledocholithiasis: Plan: s/p ERCP with stone removal and stent placement Doing better today Advance diet as tolerated Will need broad spectrum antibiotics for 10 days F/U with Dr. Katz in 6-8 weeks for repeat ERCP with stent removal Admission and Anticipated Discharge Date Admission Date: January 10, 2022 Subjective Feeling better today. Still with mild RUQ abd pain, 3/10 in intensity. States that Morphine helps but does cause nausea. Tolerating liquid diet. Liver panel has improved, though lipase slightly increased. She denies any fevers, chills, vomiting, diarrhea, or hematemesis. No further complaints. Review of Systems Constitutional: as per Subjective / HPI Eyes: as per Subjective / HPI Ear, Nose, Mouth, Throat: as per Subjective / HPI Respiratory: as per Subjective / HPI Cardiovascular: as per Subjective / HPI Gastrointestinal: as per Subjective / HPI Musculoskeletal: as per Subjective / HPI Integumentary: as per Subjective / HPI Neurologic: as per Subjective / HPI Psychiatric: as per Subjective / HPI Endocrine: as per Subjective / HPI Hematologic / Lymphatic: as per Subjective / HPI Allergy / Immunological: as per Subjective / HPI Physical Exam Constitutional: WD/WN, vitals as above Respiratory: normal respiratory effort, lungs clear to auscultation Cardiovascular: RRR, no murmur, no edema Gastrointestinal (Abdomen): Inspection/Auscultation: abdomen normal to inspection and normal bowel sounds; abdomen not distended Percussion/Palpation: + abdomen tender (RUQ) and abdomen soft; no guarding, abdomen not rigid and no hepatosplenomegaly Skin: no rashes, warm and dry Psychiatric: A+Ox3, euthymic affect Results & Data Results & Data ([facility]) Vital Signs (Past 12 Hours) Vital Signs Temp Pulse Pulse Resp BP Pulse Ox 01/11/22 10:32 36.7 C 45 L 18 118/75 98 01/11/22 07:40 36.7 C 45 L 18 118/75 98 01/11/22 03:47 36.7 C 50 L 16 108/66 96 PG Care Time/CCT Total # of Minutes Spent Total Time Spent with Patient: Total time spent is greater than 50% in coordination of care (as documented) at patient's floor/unit and/or counseling patient: Coding Level of Care Code 57756 Subseq Hosp Care Lvl 3 Diagnoses Hx laparoscopic cholecystectomy Z90.49 Elevated LFTs R79.89 Choledocholithiasis K80.50
--- NOTE | 2022-01-11 18:45 | Emergency Department Note ---
Impression & Plan Jaundice, Hx laparoscopic cholecystectomy, Epigastric abdominal pain ED Provider Note CHIEF COMPLAINT: epigastric abd pain, post cholecystectomy HISTORY OF PRESENT ILLNESS: This 31 yo female patient presents to the emergency department with c/o epigastric abd pain, pt is s/p cholecystectomy on 12/29 at our facility. She is also 4 month and . Patient states the pain has been waxing and waning for the better part of a week. She denies any fevers. She has had some nausea. She does believe the pain is exacerbated by eating. She feels the pain is similar to her gallbladder attacks. She did contact her surgeon but as the pain was initially tolerable with ibuprofen, they advised her to wait it out. Today the pain became intolerable and she was advised to report to the emergency department for evaluation. REVIEW OF SYSTEMS: A review of systems was performed with positives and pertinent negatives listed in the history of present illness. 10 systems were reviewed and are otherwise negative. ALLERGIES: see below MEDICATIONS: see below PMH: see below SOCIAL HISTORY: see below DDx: Obstructive jaundice, biloma, cholangitis, choledocholithiasis, bile leak, pancreatitis, gastric ulcer, obstructive mass amongst others PHYSICAL EXAM: Vital signs reviewed. General: Well-appearing 31 yo female, in no significant distress. HEENT: No scleral icterus, PERRLA, neck supple. Atraumatic. Cardiovascular: Regular rate and rhythm, no extra sounds. Pulmonary: Clear to auscultation bilaterally, normal work of breathing. Abdomen: Soft, tender to palpation of the epigastric region, positive guarding with minimal rebound, nondistended, positive bowel sounds. Musculoskeletal: Atraumatic, no peripheral edema. Neurologic: Patient awake alert and oriented x 3, speech is clear Skin: Warm, dry, no rash. Abdominal incisions appear to be intact and healing well. EMERGENCY DEPARTMENT COURSE/MDM: This patient was evaluated and appeared to be in no significant distress. IV access was obtained and laboratory work was drawn. The patient was placed on the facilities supervisor and noted to be in a normal sinus rhythm. CT imaging of the abdomen pelvis was performed and reveals nonspecific intrahepatic ductal dilatation. Patient was hydrated with normal saline solution given fentanyl and Zofran IV for her discomfort. Laboratory work reveals a normal WBC with a bilirubin of 6.2 and elevated AST/ALT. These numbers with the findings on CT imaging would be concerning for a retained stone postcholecystectomy. General surgery has been contacted and will evaluate the patient for admission and further management. Patient and are aware of the plan and agreed. MONITORING: An order for cardiac monitoring was placed and the patient is noted to be in a NSR at 61 beats per minute. RADIOLOGY: see below EKG: Normal sinus rhythm with sinus arrhythmia at 66 bpm QTC is 438. Nonspecific ST changes. No PVC, no PAC. Normal axis. DISPOSITION: Admission Past Med/Surg History Medical History Anxiety GERD (gastroesophageal reflux disease) Nausea and vomiting after administration of anesthetic agent Temporomandibular joint disorder Clicking, recommended to use bite block--pt states she does not use Surgical History H/O LEEP History of dilatation and curettage (~2019) Hx laparoscopic cholecystectomy (12/29/21) Laparoscopic cholecystectomy. Dr. 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 Beliefs That Will Affect Care: None marital status: Current Living Situation: Family Current Living Situation Comment: Lives with and kids current occupational status: employed current occupation: [employer] How many Children do You have: 2 Feels Safe at Home: Yes during the past year weight has: decreased > 10 lbs Assistive Devices: None Allergies Allergies Allergy/AdvReac Type Severity Reaction Status Date / Time No Known Allergies Allergy Verified 01/09/22 22:53 Home Meds Home Medications Medication Instructions Recorded Confirmed famotidine 20 mg tablet (Pepcid) 20 mg PO DAILY PRN 12/11/21 01/09/22 cholecalciferol (vitamin D3) 50 50 mcg PO QPM 12/24/21 01/09/22 mcg (2,000 unit) tablet (Vitamin D3) sertraline 25 mg tablet (Zoloft) 25 mg PO HS 12/24/21 01/09/22 zinc 50 mg tablet 50 mg PO QPM 12/24/21 01/09/22 ondansetron HCl 4 mg tablet 4 mg PO Q6 PRN 01/09/22 01/09/22 Previous Rx's Medication Instructions Recorded amoxicillin 500 mg-potassium 1 tab PO Q12H #20 tab 01/11/22 clavulanate 125 mg tablet (Augmentin) Results & Data (ED) Home Medications Current Medication List: was personally reviewed by me Laboratory Data Attestation: I reviewed the patient's lab results. Result diagrams: 01/11/22 05:47 01/11/22 05:47 Lab Results 01/09/22 01/09/22 01/09/22 Range/Units 21:20 21:20 21:30 WBC 6.62 (4.8-10.8) K/uL RBC 5.12 (4.2-5.4) M/uL Hgb 15.2 (12.0-16.0) g/dL Hct 45.3 (37-47) % MCV 88.5 (80-100) fL MCH 29.7 (25-34) pg MCHC 33.6 (32-36) g/dL RDW Std Deviation 46.9 H (36.4-46.3) fL RDW Coeff of Connor 14.2 (11.5-14.5) % Plt Count 345 (130-400) K/uL MPV 10.2 (7.4-10.4) fL Immature Gran % (Auto) 0.2 % Neut % (Auto) 71.3 % Lymph % (Auto) 18.7 % [place] % (Auto) 7.3 % Eos % (Auto) 2.3 % Baso % (Auto) 0.2 % Neut # (Auto) 4.73 (1.4-6.5) K/uL Lymph # (Auto) 1.24 (1.2-3.4) K/uL [place] # (Auto) 0.48 (0.11-0.59) K/uL Eos # (Auto) 0.15 (0-0.5) K/uL Baso # (Auto) 0.01 (0-0.2) K/uL Immature Gran # (Auto) 0.01 (0.00-0.02) K/uL Sodium 141 (136-145) mmol/L Potassium 3.4 L (3.5-5.1) mmol/L Chloride 107 (98-107) mmol/L Carbon Dioxide 24 (21-32) mmol/L Anion Gap 10 (3-11) BUN 10 (6-23) mg/dl Creatinine 0.78 (0.6-1.2) mg/dl Est Cr Clr Drug Dosing 117.5 ml/min Est GFR ( Amer) 118.2 ml/min Est GFR (Non-Af Amer) 102.0 ml/min BUN/Creatinine Ratio 12.8 (10-20) Glucose 120 H (70-99(Fasting)) mg/dl Calcium 9.4 (8.5-10.1) mg/dl Total Bilirubin 6.2 H (0.2-1.0) mg/dl AST 494 H (13-39) U/L ALT 997 H (7-52) U/L Alkaline Phosphatase 448 H (34-104) U/L Total Protein 7.5 (6.0-8.3) gm/dl Albumin 4.4 (3.4-5.0) gm/dl Globulin 3.1 (2.5-4.0) gm/dl Albumin/Globulin Ratio 1.4 (0.9-2) Urine Color Dark Yellow Urine Appearance Clear (Clear) Urine pH 5.0 (4.5-7.5) Ur Specific [place] 1.016 (1.000-1.030) Urine Protein Negative (Negative) Urine Glucose (UA) Negative (Negative) Urine Ketones Trace H (Negative) Urine Blood Trace H (Negative) Urine Nitrite Positive A (Negative) Urine Bilirubin 3+ H (Negative) Urine Urobilinogen Negative (Negative) Ur Leukocyte Esterase 1+ H (Negative) Urine WBC (Auto) 1-5 (0-5) /hpf Urine RBC (Auto) 5-10 H (0-4) /hpf U Hyaline Cast (Auto) 1-5 (0-5) /lpf U Epithel Cells (Auto) 5-10 H (0-5) /lpf Urine Bacteria (Auto) Negative (Negative) Urine Yeast Not Reportable POC Ur Test SARS-CoV-2, RNA, NAAT (NEGATIVE) 01/09/22 01/09/22 Range/Units 21:30 23:40 WBC (4.8-10.8) K/uL RBC (4.2-5.4) M/uL Hgb (12.0-16.0) g/dL Hct (37-47) % MCV (80-100) fL MCH (25-34) pg MCHC (32-36) g/dL RDW Std Deviation (36.4-46.3) fL RDW Coeff of Connor (11.5-14.5) % Plt Count (130-400) K/uL MPV (7.4-10.4) fL Immature Gran % (Auto) % Neut % (Auto) % Lymph % (Auto) % [place] % (Auto) % Eos % (Auto) % Baso % (Auto) % Neut # (Auto) (1.4-6.5) K/uL Lymph # (Auto) (1.2-3.4) K/uL [place] # (Auto) (0.11-0.59) K/uL Eos # (Auto) (0-0.5) K/uL Baso # (Auto) (0-0.2) K/uL Immature Gran # (Auto) (0.00-0.02) K/uL Sodium (136-145) mmol/L Potassium (3.5-5.1) mmol/L Chloride (98-107) mmol/L Carbon Dioxide (21-32) mmol/L Anion Gap (3-11) BUN (6-23) mg/dl Creatinine (0.6-1.2) mg/dl Est Cr Clr Drug Dosing ml/min Est GFR ( Amer) ml/min Est GFR (Non-Af Amer) ml/min BUN/Creatinine Ratio (10-20) Glucose (70-99(Fasting)) mg/dl Calcium (8.5-10.1) mg/dl Total Bilirubin (0.2-1.0) mg/dl AST (13-39) U/L ALT (7-52) U/L Alkaline Phosphatase (34-104) U/L Total Protein (6.0-8.3) gm/dl Albumin (3.4-5.0) gm/dl Globulin (2.5-4.0) gm/dl Albumin/Globulin Ratio (0.9-2) Urine Color Urine Appearance (Clear) Urine pH (4.5-7.5) Ur Specific [place] (1.000-1.030) Urine Protein (Negative) Urine Glucose (UA) (Negative) Urine Ketones (Negative) Urine Blood (Negative) Urine Nitrite (Negative) Urine Bilirubin (Negative) Urine Urobilinogen (Negative) Ur Leukocyte Esterase (Negative) Urine WBC (Auto) (0-5) /hpf Urine RBC (Auto) (0-4) /hpf U Hyaline Cast (Auto) (0-5) /lpf U Epithel Cells (Auto) (0-5) /lpf Urine Bacteria (Auto) (Negative) Urine Yeast POC Ur Test Cancelled SARS-CoV-2, RNA, NAAT NEGATIVE (NEGATIVE) Administered Medications Discontinued Medications Fentanyl Citrate (Fentanyl Citrate 100 Mcg/2 Ml Vial) 50 mcg IV Q1H PRN PRN Reason: Pain Stop: 01/23/22 23:24 Last Admin: 01/10/22 01:17 Dose: 50 mcg Documented by: [id number] Admin: 01/09/22 23:47 Dose: 50 mcg Documented by: [id number] Potassium Chloride 10 meq/ (Lactated Ringer's) 1,005 mls @ 75 mls/hr IV .[id number] [facility] Stop: 02/09/22 00:29 Last Infusion: 01/10/22 09:38 Dose: 0 mls/hr Documented by: [id number] Admin: 01/10/22 02:08 Dose: 75 mls/hr Documented by: [id number] Piperacillin Sod/Tazobactam (Sod 3.375 gm/ Dextrose) 115 mls @ 28.75 mls/hr IV Q8H [facility]; Protocol Stop: 01/20/22 00:29 Last Infusion: 01/11/22 13:36 Dose: 0 mls/hr Documented by: [id number] Admin: 01/11/22 09:38 Dose: 28.8 mls/hr Documented by: [id number] Infusion: 01/11/22 04:34 Dose: 0 mls/hr Documented by: [id number] Admin: 01/11/22 00:20 Dose: 28.8 mls/hr Documented by: [id number] Infusion: 01/10/22 20:32 Dose: 0 mls/hr Documented by: [id number] Admin: 01/10/22 16:25 Dose: 28.8 mls/hr Documented by: [id number] Infusion: 01/10/22 13:10 Dose: 0 mls/hr Documented by: [id number] Admin: 01/10/22 09:11 Dose: 28.8 mls/hr Documented by: [id number] Infusion: 01/10/22 08:01 Dose: 0 mls/hr Documented by: [id number] Admin: 01/10/22 02:08 Dose: 28.8 mls/hr Documented by: [id number] Lactated Ringer's (Lr) 1,000 mls @ 150 mls/hr IV .[id number] [facility]ANDEE Stop: 02/09/22 08:59 Last Admin: 01/11/22 11:18 Dose: 150 mls/hr Documented by: [id number] Infusion: 01/11/22 11:18 Dose: 150 mls/hr Documented by: [id number] Admin: 01/11/22 04:39 Dose: 150 mls/hr Documented by: [id number] Infusion: 01/11/22 04:39 Dose: 150 mls/hr Documented by: [id number] Admin: 01/10/22 22:29 Dose: 150 mls/hr Documented by: [id number] Infusion: 01/10/22 22:29 Dose: 150 mls/hr Documented by: [id number] Admin: 01/10/22 16:25 Dose: 150 mls/hr Documented by: [id number] Infusion: 01/10/22 16:14 Dose: 150 mls/hr Documented by: [id number] Admin: 01/10/22 09:33 Dose: 150 mls/hr Documented by: [id number] Indomethacin (Indomethacin 50 Mg Supp) 100 mg NH ONCE ONE Stop: 01/10/22 14:58 Last Admin: 01/10/22 15:18 Dose: 100 mg Documented by: [id number] Indomethacin (Indomethacin 50 Mg Supp) Confirm Administered Dose 100 mg NH .STK- MED ONE Stop: 01/10/22 15:00 Last Admin: 01/10/22 15:11 Dose: Not Given Documented by: [id number] Ioversol (Optiray 320 100ml) 95 ml IV ONCE ONE Stop: 01/09/22 23:36 Last Admin: 01/09/22 23:28 Dose: 95 ml Documented by: [id number] Morphine Sulfate (Morphine Sulfate 4 Mg/Ml 1 Ml Carp\Vial) 3 mg IV Q3H PRN PRN Reason: Pain Stop: 01/24/22 00:23 Last Admin: 01/10/22 22:34 Dose: 3 mg Documented by: [id number] Admin: 01/10/22 17:41 Dose: 3 mg Documented by: [id number] Admin: 01/10/22 11:17 Dose: 3 mg Documented by: [id number] Ondansetron HCl (Ondansetron Inj 2 Mg/Ml 2 Ml Vial) 4 mg IV NOW STA Stop: 01/09/22 23:26 Last Admin: 01/09/22 23:47 Dose: 4 mg Documented by: [id number] Ondansetron HCl (Ondansetron Inj 2 Mg/Ml 2 Ml Vial) 4 mg IV Q6H PRN PRN Reason: Nausea And Vomiting Stop: 02/09/22 00:24 Last Admin: 01/10/22 22:36 Dose: 4 mg Documented by: [id number] Admin: 01/10/22 14:01 Dose: 4 mg Documented by: [id number] Admin: 01/10/22 04:21 Dose: 4 mg Documented by: [id number] Sertraline HCl (Sertraline Hcl 50 Mg Tablet) 25 mg PO HS RANDEE Stop: 02/09/22 20:59 Last Admin: 01/10/22 20:34 Dose: 25 mg Documented by: [id number] Imaging Data Radiologist's Impression: Abdomen/Pelvis CT 01/09/22 22:44 CT SCAN OF THE ABDOMEN AND PELVIS WITH IV CONTRAST CLINICAL HISTORY: Hyperbilirubinemia status post cholecystectomy. Generalized abdominal pain. COMPARISON STUDY: No priors. TECHNIQUE: Following the IV administration of 95 cc of Optiray 320, CT scan of the abdomen and pelvis is performed from the lung bases to the proximal femora. Images are reviewed in the axial, sagittal, and coronal planes. IV contrast was administered without complication. A dose lowering technique was utilized adhering to the principles of ALARA. CT DOSE: 535.53 mGy.cm FINDINGS: Lung bases: The heart is normal in size and without pericardial effusion. The lung bases are clear. Liver: The contrast-enhanced liver is normal in size, contour, and attenuation. There is mild intrahepatic biliary ductal dilatation. The hepatic veins and portal veins are patent. Gallbladder: Surgically absent noting clips in the gallbladder fossa. There is minimal stranding in the gallbladder fossa. No fluid collection is identified. Spleen: Normal in size and attenuation. Pancreas: Unremarkable. Adrenal glands: Unremarkable. Kidneys: The contrast enhanced kidneys are normal in size and without hydronephrosis. The kidneys enhance symmetrically. A circumaortic left renal vein is incidentally noted. Abdominal vasculature: The abdominal aorta is normal in course and caliber. Bowel: The small bowel and colon are normal in course and caliber. The appendix is well-visualized and normal. Peritoneum: There is no intraperitoneal free air or abdominal ascites. There is a fat-containing umbilical hernia. Lymphadenopathy: None. Pelvic viscera: The bladder, uterus, and adnexa are normal as visualized. Bilat eral ovarian follicles are incidentally noted. Skeletal structures: No lytic or blastic lesions are seen. IMPRESSION: 1. The gallbladder is surgically absent. 2. There is minimal stranding in the gallbladder fossa. No fluid collection is seen. 3. There is mild nonspecific intrahepatic biliary ductal dilatation. If there is clinical concern for a retained gallstone/choledocholithiasis an MRCP could be considered. 4. Additional findings as above. ACT 112: Negative or not required by law. Electronically signed by: Ramses Narayan M.D. 01/10/2022 12:30 AM Blood Pressure Blood Pressure Findings: Normal blood pressure Discharge Plan Visit Data Chief Complaint: Referred by Doctor Stated Complaint: DR REGAN, JAUNDICE, BILE LEAK, POST GALL SURG ED Provider: Shyla Hanks Discharge Problem: Jaundice, Hx laparoscopic cholecystectomy, Epigastric abdominal pain Patient Disposition: Admitted As Inpatient Condition: Good Discharge Instructions Interventions: ED Discharge Assessment Last Done: 01/10/22 04:02
--- NOTE | 2022-01-12 06:13 | Electrocardiogram Report ---
Test Reason : Blood Pressure : / mmHG Vent. Rate : 066 BPM Atrial Rate : 066 BPM P-R Int : 144 ms QRS Dur : 098 ms QT Int : 418 ms P-R-T Axes : 032 022 063 degrees QTc Int : 438 ms Normal sinus rhythm with sinus arrhythmia Normal ECG No previous ECGs available Confirmed by Branden Luther ([id number]) on 01/12/2022 6:12:38 AM Referred By: Frank Steven Confirmed By:Branden Luther
--- NOTE | 2022-01-12 18:38 | Discharge Summary ---
Date of Service January 12, 2022 Admission HPI Per Admitting Provider This is a 31-year-old female who underwent a laparoscopic cholecystectomy on 12/29/[address] Sahu. The operative note was reviewed and it was noted the patient had a significant amount of sludge in her gallbladder. Patient says she was discharged home the day of her surgery and was initially doing well without any specific complaints other than some minor surgical pain. Patient notes that about 2 days ago she developed abdominal pain in her upper abdomen that she described as a "gallbladder attack". She had some associated nausea and vomiting but did not have any fevers, shakes, or chills. Since this episode the patient also noted that her eyes have become yellow. In the ED today the patient underwent labs and diagnostic testing which independent reviewed. An EKG showed normal sinus rhythm without any changes indicative of ischemia.CBC revealed white blood cell count, hemoglobin, hematocrit, and platelet count were all normal. Chemistry profile showed sodium was 141. Her potassium was 3.4. Her BUN and creatinine were both noted to be normal. Patient's total bilirubin was elevated at 6.2. Her AST and ALT were both elevated at 494 and 997 respectively. Alkaline phosphatase was elevated at 448. The patient did undergo a CT scan of the abdomen and pelvis that showed the no fluid collection was noted in the gallbladder fossa. There is some mild intrahepatic biliary ductal dilatation noted. At the time of my interview the patient was resting comfortably in bed and she was in no distress. Discharge Data Consultations 01/10/22 00:35 ED Decision to Admit Stat 01/10/22 04:09 Consult Gastroenterology Routine Procedures Performed Operation Date: 01/10/22 15:00 Actual Procedures p Endoscopic Retrograde Cholangiopancreatography in Operating Room(Not Applicable) - Shelia Katz DO Hospital Course (1) Choledocholithiasis: This is a 31-year-old female who is status post cholecystectomy by Dr. Sahu. Patient was initially doing well after her surgery but she began to complain of abdominal pain and noticed that she was becoming somewhat jaundiced at home. She presented to the emergency department on date of admission which was 01/08/2022 and was noted to have elevated LFTs. A CT scan of her abdomen pelvis did not reveal any evidence of fluid collection in the gallbladder fossa. She had an MRCP that was negative for choledocholithiasis. Gastroenterology consultation was obtained and it was felt the patient had a high pretest probability of choledocholithiasis despite a normal MRCP. Patient was admitted to the hospital she was made n.p.o., provided with antibiotics, and hydrated IV fluids. On 01/09/2022 gastroenterology took the patient for an ERCP where she was found to have choledocholithiasis and therefore a stent was placed in her common bile duct after the duct was cleared of debris and stones. The day following this procedure she was doing well and she had improvement of her LFTs and she was deemed stable for discharge home. She was discharged home on a 10- day course of Augmentin. She was also instructed to call Dr. Katz of [facility] gastroenterology for an appointment to have her stent removed in approximate 6 weeks. She was instructed to call Dr. Sahu's office for appropriate follow-up appointment in 1 to 2 weeks as well. Coding Level of Care Code None Diagnoses Choledocholithiasis K80.50
== END 2022-01-11 13:36 | disposition home or self-care (01) ==
LOC: ED 20:41 → INTOOBSV 01-10 00:24 → 3W 01-10 00:24